=== PATIENT | male | born 1990 | race Caucasian/White ===

== ENCOUNTER 2021-11-09 09:35 | Emergency (ER) | payer OTHER ==
[~2021-11-09] VITALS: Ht 180.3 cm; Wt 97.5 kg
[2021-11-09 09:48] VITALS: BP 126/80
--- NOTE | 2021-11-09 09:52 | NUR ---
PT AMBULATED TO ER BED 8
--- NOTE | 2021-11-09 10:00 | NUR ---
31YR OLD MALE BIB SELF C/O PUNTURE WOUND TO FOOT S/P INJURY X2 DAYS. PT STEPPED ON NAIL AT WORK 2 DAYS AGO , STATES PAIN RADIATED TO UPPER LEFT THIGH. 8/10 PAIN . NO SWELLING DENIES FEVER NO DRAINAGE TO PUNTURE AREA. PT A&OX4 GAIT STEADY. UNKNOWN ON LAST TDAP SHOT.
[2021-11-09] MEDS ORDERED: CEPH-588 PO ×2 (10:46→14:29)
--- NOTE | 2021-11-09 10:58 | NUR ---
The patient's care was reviewed and supervised by Amy Case RN.
== END 2021-11-09 10:56 | disposition home or self-care (01) ==
LOC: MED 09:35
DX: S91.332A Puncture wound without foreign body, left foot, initial encounter (principal); Z79.899 Other long term (current) drug therapy; Z88.8 Allergy status to other drugs, medicaments and biological substances; W22.8XXA Striking against or struck by other objects, initial encounter; Y93.89 Activity, other specified; Y92.89 Other specified places as the place of occurrence of the external cause; Y99.8 Other external cause status
CPT/HCPCS: 99282; 99283